=== PATIENT | female | born 1975 | race African-American/Black ===

== ENCOUNTER → 2021-12-02 | Outpatient (CLI) | payer BC, MEDICARE ==
--- NOTE | 2021-12-02 11:05 | RAD ---
EXAMINATION: US ABDOMEN COMPLETE 12/02/2021 9:45 AM INDICATION: Epigastric pain, recent cholecystectomy TECHNIQUE: Dominguez scale and color Doppler ultrasound images of the abdomen were obtained. COMPARISON: None. FINDINGS: Liver: The liver is normal in size measuring 17.7 cm in length. Normal hepatic echogenicity. No foc al liver lesion. Gallbladder: The is surgically absent. There is a small amount of simple appearing fluid in the gall bladder fossa measuring 2.0 x 1.5 cm. No surrounding hyperemia Bile ducts: The common bile duct is normal measuring 4 mm. No intrahepatic biliary duNo dilatation. Kidneys: The right kidney measures 8.1 x 3.9 x 3.6 cm. The left kidney measures 8.1 x 3.8 x 3.8 cm. Normal cortical thickness and echogenicity bilaterally. No hydronephrosis. Spleen: Spleen is normal measuring 9 cm. Other: The abdominal aorta is normal in caliber. IVC is patent at the level of the liver. The pancrea s is normal in appearance where visualized. IMPRESSION: Post cholecystectomy. Small amount of fluid in the gallbladder fossa, nonspecific. Electronically signed by: Orquidea Appiah MD (12/02/2021 11:03 AM) [facility]
== END ==
LOC: US 09:39
PROVIDERS: ATTEND Internal Medicine Gastroenterology
DX: R10.13 Epigastric pain (principal); Z90.49 Acquired absence of other specified parts of digestive tract
CPT/HCPCS: 76700